=== PATIENT | male | born 1970 | race Caucasian/White ===

== ENCOUNTER → 2020-12-03 12:31 | Outpatient (BNVA) | payer BC, SELFPAY | PROVIDERS: PCP Pediatrics; Visit Provider Nurse Practitioner Family ==

== ENCOUNTER → 2020-12-31 08:58 | Outpatient (BNVA) | payer BC, SELFPAY | PROVIDERS: PCP Pediatrics; Visit Provider Nurse Practitioner Family ==

== ENCOUNTER 2022-10-07 07:55 | Outpatient (AMB) | payer BC, SELFPAY ==
[2022-10-07 08:07] VITALS: BP 132/68; PULSE 68; TEMP 36.6; O2SAT 99; BMI 27.6
--- NOTE | 2022-10-07 08:07 | MHC.OFFVIS ---
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 Accompanied by: Self / Same As Patient Allergies acetaminophen [From TYLENOL] Allergy (Unknown, Verified 10/07/22 08:13) TACHYCARDIA amoxicillin [From Augmentin] Allergy (Unknown, Unverified 10/07/22 08:13) Unknown clavulanic acid [From Augmentin] Allergy (Unknown, Unverified 10/07/22 08:13) Unknown COVID-19 vaccine, mRNA, [id number], L Adverse Reaction (Intermediate, Unverified 10/07/22 08:13) Diarrhea, Hives budesonide [From Symbicort] Adverse Reaction (Unknown, Unverified 10/07/22 08:13) Unknown formoterol [From Symbicort] Adverse Reaction (Unknown, Unverified 10/07/22 08:13) Unknown levofloxacin Adverse Reaction (Unknown, Unverified 10/07/22 08:13) Unknown tiotropium [From Spiriva with HandiHaler] Adverse Reaction (Unknown, Unverified 10/07/22 08:13) Unknown Medication List - Last Reconciled 10/07/22 by Jerome Jerry MD albuterol sulfate 90 mcg/actuation 1 puff inhalation Q6H PRN carisoprodol 350 mg PO BID epinephrine (EpiPen 2-Toño) IM esomeprazole magnesium (Nexium) 40 mg PO DAILY gabapentin 300 - 900 mg PO Q8H PRN lorazepam 1 mg PO DAILY PRN montelukast 10 mg PO DAILY nitroglycerin 0.6 mg sublingual DAILY pravastatin 40 mg PO DAILY HPI HPI Comments History of Present Illness Details The patient presents with complaints of multiple areas of painful muscle spasm and a positive CECILIA. He has a rather long history of degenerative disc disease in the cervical and lumbar spine regions. This culminated with surgery in the neck a few years ago. That did improve symptoms but he was still prone to intermittent paresthesias and pain radiating from the neck down to the arms. However since last fall this has been accompanied by muscle spasms in those areas. This has been quite uncomfortable. It interferes with his sleep. He has been medicated with gabapentin, lorazepam, and gabapentin. The gabapentin at high doses did seem to help him but he felt numb all over and felt it interfered with sexual activity. He has been trying to taper the gabapentin. He at one point was taking 900 mg 3 times a day. Now he is down to about 1500 mg a day, taking it mostly at night. He has also recently been getting occasional lower extremity cramping in the calf and foot regions. This comes on at rest. He wanted to see a neurologist but he says they refused to see him for this complaint. He was developing some tinnitus back in February. He did have ENT workup and was told his hearing was normal but they did order MRI scanning of the brain. He is concerned he could have MS. His symptoms did improve somewhat in the July to August timeframe for unclear reasons although it might have been because he was taking more regularly the gabapentin. Today he notes some slight numbness over the soles of both feet. The right 5th finger is exquisitely sensitive to pressure, causing him significant, lancinating pain with pressure. No swelling or redness is noted. [facility] [place] Medical History (Updated 10/07/22 @ 09:00 by Jerome Jerry MD) CECILIA positive Anxiety Cervical radiculopathy Chronic low back pain Osteoarthritis Prinzmetal angina Reactive airways dysfunction syndrome Surgical History No history of previous surgery Family History (Updated 09/28/22 @ 16:21 by SOFIA Barney) Other Medical history unknown Social History Alcohol intake: current Alcohol intake frequency: holidays/special occasions only Patient Tobacco Use Status: Never used Tobacco Review of Systems Const Details: Negative for appetite change, weight change, fever, chills, malaise and fatigue Eyes Details: The vision is occasionally transiently blurred. Intermittent headaches recently. Negative for dry eyes and dizziness ENT Details: Tinnitus mostly in the left ear as noted above. Workup underway. Negative for hearing change, oral ulcer, nose bleeds and oral dryness. Card Details: Negative chest pain, edema and syncope Resp Details: Negative for SOB, cough and wheezing GI Details: Occasional loose stool. Negative indigestion/heartburn, nausea, abdominal pain, bowel changes, constipation and bloody stool. Details: Negative for dysuria, hematuria, nocturia, decreased force/flow and genital discharge Skin/Breast Details: Negative for itching, rash, hives, Raynaud's symptoms, sun sensitivity, and skin cancer Neuro Details: Numbness in the feet, occasional paresthesias around the face. Negative for epilepsy, palsy, stroke, changes in speech, and weakness Psych Details: Some history of depression in the past associated with loss of a apparent. He says the antidepressants made him feel numb so he does not want to take any right now. Endo Details: Negative for polyuria and polydypsia Jose/Lymph Details: Negative for excessive bruising or bleeding. Physical Exam Vital Signs: Last Vital Signs Temp 97.8 F 10/07/22 08:07 Pulse 68 10/07/22 08:07 BP 132/68 10/07/22 08:07 Pulse Ox 99 10/07/22 08:07 BMI result Body Mass Index 27.6 APPEARANCE: Patient in no acute distress EYES no redness, pupils equal and reactive to light, eyelids normal EARS: External ear normal, canal clear and tympanic membrane normal. NOSE/SINUS: Airflow through both nares, no nasal discharge, no bleeding THROAT: Oral mucosa moist, no ulcerations NECK: No thyromegaly or masses, no adenopathy, trachea midline. HEART: Regulrar rhythm, S1-S2 heard, no murmurs, rubs or gallops. LUNG: Clear to percussion and auscultation ABD: Normal bowel sounds, no organomegaly, masses or tenderness. EXTREMITIES: No edema, no calf tenderness, normal peripheral pulses. NEURO: Oriented and alert x3. No focal weakness. Reflexes symmetric. Questionable sensory loss over the toes. Hyperesthesia around the right 5th finger.. Gait normal. SKIN: No inflammatory or neoplastic lesions. Normal color and turgor JOINT EXAM:.?? Cervical Spine:.? Lateral rotation limited to 40 degrees and lateral flexion to 10 degrees with some pain. There is some cervical spine muscle tenderness. Thoracic Spine:.? No scoliosis.? No tenderness on palpation. Lumbar Spine:.? Alignment normal.? Lumbar pain with extremes of range of motion. no tenderness. Chest Wall:.? No tenderness, swelling, increased warmth or erythema. Hands:.? Right: There seems to be pain-free range of motion in all the fingers except for the 5th. This has exquisite tenderness to pressure over the joint and the tissues outside of the joint. There is no swelling, redness or warmth noted. Other joints are not tender or swollen. Left: Normal pain-free range of motion without tenderness, swelling, increased warmth or erythema. Able to make a full fist and has a good miller first strength. Wrists:.? Normal pain-free range of motion without tenderness, swelling, increased warmth or erythema. Elbows:. Normal pain-free range of motion without tenderness, swelling, increased warmth or erythema. Shoulders:. Left: Slight discomfort with extremes of motion with some mild anterior tenderness. Right:?? Full range of motion without pain. No tenderness, weakness, swelling, increased warmth or erythema. Hips:.? Full range of motion without pain. Hip bursa:.? No tenderness. Knees:.?? Normal pain-free range of motion without tenderness, swelling, increased warmth or erythema.? There is no effusion or crepitation Ankles:.? Normal pain-free range of motion without tenderness, swelling, increased warmth or erythema. Feet:.? Normal pain-free range of motion without tenderness, swelling, increased warmth or erythema. Tender points:.? Mild tenderness to digital palpation at the trapezius, greater trochanter area bilaterally. ? Assessment & Plan Assessment & Plan (1) CECILIA positive: Code(s): R76.8 - Other specified abnormal immunological findings in serum (2) Arm pain, chronic: Code(s): M79.603 - Pain in arm, unspecified; G89.29 - Other chronic pain Plan The patient has a low titer positive CECILIA. I do not see any signs of an active inflammatory arthritis present. The chemistries were normal suggesting there is no electrolyte abnormality that could explain his proclivity to muscle spasm. I suspect the nerves are driving this with previous nerve damage in the cervical spine region. He says he did have nerve conduction studies that showed evidence of previous nerve damage. I suspect the lower extremity spasms were of less severe degree and more consistent with that experienced by many people. He has tinnitus that is unexplained and severe. It is certainly reasonable for him to the follow through with the MRI to look at 8th nerve structures. There may be evidence on that for a demyelinating disease but I do not think his symptoms are all that typical. I will look for other antibodies more closely associated with lupus. I would not expect them to be diagnostic. I told him to continue to use the gabapentin but try not to taper it so quickly. He may find that if he stays at the higher dose longer he will have less adverse effects. He might also benefit from an antidepressant to modulate his pain. He wants to see a neurologist so I will see if we can set that up with the neurology group here at [facility]. Orders: Orders Anti DNA DS Antibody Today R76.8 - Other specified abnormal immunological findings in serum Anti Extractable Nuclear Ag Today R76.8 - Other specified abnormal immunological findings in serum Sjogren's Antibodies Today R76.8 - Other specified abnormal immunological findings in serum Referrals Neurology Referral G89.29 - Other chronic pain, M79.603 - Pain in arm, unspecified Coding Level of Care Code New Pt Level 3 (27509) Diagnoses CECILIA positive R76.8 Arm pain, chronic M79.603; G89.29
== END 2022-10-07 09:02 | disposition home or self-care (01) ==
PROVIDERS: PCP Pediatrics; Visit Provider Internal Medicine Rheumatology
DX: R76.8 Other specified abnormal immunological findings in serum (principal); M79.603 Pain in arm, unspecified; G89.29 Other chronic pain
CPT/HCPCS: 99203

== ENCOUNTER → 2022-10-07 07:55 | Outpatient (BNVA) | payer BC, SELFPAY | PROVIDERS: PCP Pediatrics; Visit Provider Internal Medicine Rheumatology ==

== ENCOUNTER 2022-10-07 09:05 | Outpatient (REF) | payer BC, SELFPAY ==
[2022-10-12 19:48] LABS: Anti DNA DS Antibody <1 IU/mL; Antibody to SS-A Antigen <1.0 NEG AI (<1.0 NEG); Antibody to SS-B Antigen <1.0 NEG AI (<1.0 NEG); SM/Ribonucleoprotein Ab <1.0 NEG AI (<1.0 NEG); Smith Protein <1.0 NEG AI (<1.0 NEG)
== END 2022-10-07 09:06 | disposition home or self-care (01) ==
LOC: HO.10HDL 09:05
PROVIDERS: Visit Provider Internal Medicine Rheumatology
DX: R76.8 Other specified abnormal immunological findings in serum (principal)
CPT/HCPCS: 36415; 86225; 86235